=== PATIENT | male | born 1990 | race Caucasian/White ===

== ENCOUNTER 2020-01-24 17:52 | Emergency (ER) | payer OTHER ==
--- NOTE | 2020-01-24 18:25 | EDM.PDOC ---
ED HPI GENERAL MEDICAL PROBLEM - General Chief Complaint: Lower Extremity Injury/Pain Stated Complaint: LEFT ANKLE INJURY LAST WEEK Time Seen by Provider: 01/24/20 18:19 - History of Present Illness INITIAL COMMENTS - FREE TEXT/NARRATIVE: 29-year-old male presents the emergency room with a left ankle injury. Patient had a inversion type injury to his left ankle 7 days ago. It is been difficult for him to walk on but that he is noticed the swelling has gotten progressively worse since that time. He did hear some popping when he did it. He has injured this ankle in the past 1 other time. Patient has pain up his leg and into his posterior foot. He denies any other injury with this unfortunate event. Left Ankle Pain Score (Numeric/FACES): 8 - Related Data Allergies Allergy/AdvReac Type Severity Reaction Status Date / Time No Known Allergies Allergy Verified 01/24/20 18:20 Review of Systems - Review of Systems Review Of Systems: See Below Constitutional: Reports: No Symptoms Respiratory: Reports: No Symptoms Cardiovascular: Reports: No Symptoms GI/Abdominal: Reports: No Symptoms ED EXAM, GENERAL - Physical Exam Exam: See Below Exam Limited By: No Limitations General Appearance: Alert, No Apparent Distress Head: Atraumatic, Normocephalic Neck: Normal Inspection Respiratory/Chest: No Respiratory Distress, Lungs Clear, Normal Breath Sounds Cardiovascular: Regular Rate, Rhythm, No Edema (Other than the affected ankle), No Murmur Extremities: Other (Lamination of his left ankle is somewhat difficult due to the swelling mostly on the lateral side he also has some developing ecchymosis inferior and posterior to the lateral malleolus he has point tenderness over the anterior talofibular calcaneofibular and posterior talar fibular ligaments. He has no palpable bubble foot discomfort.) Course - Vital Signs Last Recorded V/S: Last Vital Signs Temp 36.8 C 01/24/20 18:17 Pulse 96 01/24/20 18:17 Resp 16 01/24/20 18:17 BP 162/103 H 01/24/20 18:17 Pulse Ox 98 01/24/20 18:17 - Orders/Labs/Meds Orders: Active Orders 24 hr Category Date Time Status Ankle Min 3V Lt [CR] Stat Exams 01/24/20 18:25 Ordered Foot 2V Lt [CR] Stat Exams 01/24/20 18:25 Ordered Tibia Fibula Lt [CR] Stat Exams 01/24/20 18:25 Ordered - Re-Assessments/Exams Free Text/Narrative Re-Assessment/Exam: 01/24/20 18:58 Patient has significant swelling around his lateral ankle into the foot and up the leg examination is not horribly reliable in this setting we will x-ray his tib-fib 3 view ankle 2 view foot 01/24/20 19:21 X-ray examination is negative for acute fractures or dislocations. Significant soft tissue swelling noted. The patient be placed in a walking boot with follow -up in the clinic in 1 week. Departure - Departure Time of Disposition: 19:21 Disposition: Home, Self-Care 01 Clinical Impression: Inversion sprain of left ankle - Discharge Information Referrals: PCP,None [Primary Care Provider] - Forms: ED Department Discharge Additional Instructions: ED HPI GENERAL MEDICAL PROBLEM - General Chief Complaint: Lower Extremity Injury/Pain Stated Complaint: LEFT ANKLE INJURY LAST WEEK Time Seen by Provider: 01/24/20 18:19 - History of Present Illness INITIAL COMMENTS - FREE TEXT/NARRATIVE: 29-year-old male presents the emergency room with a left ankle injury. Patient had a inversion type injury to his left ankle 7 days ago. It is been difficult for him to walk on but that he is noticed the swelling has gotten progressively worse since that time. He did hear some popping when he did it. He has injured this ankle in the past 1 other time. Patient has pain up his leg and into his posterior foot. He denies any other injury with this unfortunate event. Left Ankle Pain Score (Numeric/FACES): 8 - Related Data Allergies Allergy/AdvReac Type Severity Reaction Status Date / Time No Known Allergies Allergy Verified 01/24/20 18:20 Review of Systems - Review of Systems Review Of Systems: See Below Constitutional: Reports: No Symptoms Respiratory: Reports: No Symptoms Cardiovascular: Reports: No Symptoms GI/Abdominal: Reports: No Symptoms ED EXAM, GENERAL - Physical Exam Exam: See Below Exam Limited By: No Limitations General Appearance: Alert, No Apparent Distress Head: Atraumatic, Normocephalic Neck: Normal Inspection Respiratory/Chest: No Respiratory Distress, Lungs Clear, Normal Breath Sounds Cardiovascular: Regular Rate, Rhythm, No Edema (Other than the affected ankle), No Murmur Extremities: Other (Lamination of his left ankle is somewhat difficult due to the swelling mostly on the lateral side he also has some developing ecchymosis inferior and posterior to the lateral malleolus he has point tenderness over the anterior talofibular calcaneofibular and posterior talar fibular ligaments. He has no palpable bubble foot discomfort.) Course - Vital Signs Last Recorded V/S: Last Vital Signs Temp 36.8 C 01/24/20 18:17 Pulse 96 01/24/20 18:17 Resp 16 01/24/20 18:17 BP 162/103 H 01/24/20 18:17 Pulse Ox 98 01/24/20 18:17 - Orders/Labs/Meds Orders: Active Orders 24 hr Category Date Time Status Ankle Min 3V Lt [CR] Stat Exams 01/24/20 18:25 Ordered Foot 2V Lt [CR] Stat Exams 01/24/20 18:25 Ordered Tibia Fibula Lt [CR] Stat Exams 01/24/20 18:25 Ordered - Re-Assessments/Exams Free Text/Narrative Re-Assessment/Exam: 01/24/20 18:58 Patient has significant swelling around his lateral ankle into the foot and up the leg examination is not horribly reliable in this setting we will x-ray his tib-fib 3 view ankle 2 view foot 01/24/20 19:21 X-ray examination is negative for acute fractures or dislocations. Significant soft tissue swelling noted. The patient be placed in a walking boot with follow -up in the clinic in 1 week. Departure - Departure Time of Disposition: 19:21 Clinical Impression: Inversion sprain of left ankle - Discharge Information Referrals: PCP,None [Primary Care Provider] - Forms: ED Department Discharge Sepsis Event Note - Focused Exam Vital Signs: Vital Signs Temp Pulse Resp BP Pulse Ox 01/24/20 18:17 36.8 C 96 16 162/103 H 98 Date Exam was Performed: 01/24/20 Time Exam was Performed: 18:52 - My Orders Last 24 Hours: My Active Orders 01/24/20 18:25 Ankle Min 3V Lt [CR] Stat Foot 2V Lt [CR] Stat Tibia Fibula Lt [CR] Stat - Assessment/Plan Last 24 Hours: My Active Orders 01/24/20 18:25 Ankle Min 3V Lt [CR] Stat Foot 2V Lt [CR] Stat Tibia Fibula Lt [CR] Stat Return to the emergency room with any questions problems or worsening symptoms. Anticipate wearing the walking boot for the next 3 weeks. Your x-rays do not show any acute fractures at this time however final radiologic interpretation will be available in the morning. Use Tylenol as needed for discomfort. Follow-up in the hospital clinic at the end of this week for recheck and have them recheck your blood pressure as well. 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 From the machine out in the waiting room you are given #20 of the hydrocodone 5 mg/325. Sepsis Event Note - Focused Exam Vital Signs: Vital Signs Temp Pulse Resp BP Pulse Ox 01/24/20 18:17 36.8 C 96 16 162/103 H 98 Date Exam was Performed: 01/24/20 Time Exam was Performed: 18:52 - My Orders Last 24 Hours: My Active Orders 01/24/20 18:25 Ankle Min 3V Lt [CR] Stat Foot 2V Lt [CR] Stat Tibia Fibula Lt [CR] Stat - Assessment/Plan Last 24 Hours: My Active Orders 01/24/20 18:25 Ankle Min 3V Lt [CR] Stat Foot 2V Lt [CR] Stat Tibia Fibula Lt [CR] Stat
--- NOTE | 2020-01-25 06:04 | CR ---
Left foot: 2 views of the left foot were obtained. Comparison: No prior left foot study is available. Joint spaces are maintained. No fracture or other bony abnormality is identified. Impression: 1. No abnormality is appreciated on 2 view left foot exam. Diagnostic code #1 This report was dictated in MDT
--- NOTE | 2020-01-25 06:04 | CR ---
Left tibia and fibula: AP and lateral views of the left tibia and fibula were obtained. Comparison: No previous study. Mild medial joint space narrowing noted within the knee. No fracture or other bony abnormality is appreciated. Impression: 1. Mild medial joint space narrowing within the knee. 2. No additional bony abnormality is identified on left tibia and fibula exam. Diagnostic code #2 This report was dictated in MDT
--- NOTE | 2020-01-25 06:04 | CR ---
Left ankle: 4 views of the left ankle were obtained. Comparison: No prior ankle study is available. Soft tissue swelling is identified. Ankle mortise is symmetric. No discrete fracture, dislocation or other bony abnormality is appreciated. Impression: 1. Soft tissue swelling. 2. No acute bony finding is seen. Diagnostic code #2 This report was dictated in MDT
== END 2020-01-24 19:50 | disposition home or self-care (01) ==
LOC: JD.ED 17:52
DX: S93.402A Sprain of unspecified ligament of left ankle, initial encounter (principal); X58.XXXA Exposure to other specified factors, initial encounter
CPT/HCPCS: 73590-26-LT; 73590-LT; 73610-26-LT; 73610-LT; 73620-26-LT; 73620-LT; 99283; 99283-25